=== PATIENT | male | born 1955 ===

== ENCOUNTER 2024-12-26 05:20 | Observation (INO) ==
--- NOTE | 2024-11-26 09:44 | PAT Medication Instructions ---
Medication Instructions Date of Service November 26, 2024 Home Medications metoprolol succinate 100 mg tablet,extended release 24 hr (Toprol XL) 100 mg PO QAM apixaban 5 mg tablet (Eliquis) 5 mg PO BID atorvastatin 40 mg tablet 40 mg PO QAM flecainide 100 mg tablet 100 mg PO Q12H lisinopril 5 mg tablet (Zestril) 5 mg PO QAM spironolactone 25 mg tablet (Aldactone) 25 mg PO QAM ASK your prescriber and surgeon apixaban 5 mg tablet (Eliquis) 5 mg PO BID (From anesthesia perspective, Apixaban/Eliquis is requested to be stopped 72 hours/3 days before surgery. Please check if okay with doctor that prescribes this to you) DO NOT take the morning of surgery lisinopril 5 mg tablet (Zestril) 5 mg PO QAM spironolactone 25 mg tablet (Aldactone) 25 mg PO QAM Take morning of surgery With a small sip of water, OTHERWISE NOTHING TO EAT OR DRINK AFTER MIDNIGHT: metoprolol succinate 100 mg tablet,extended release 24 hr (Toprol XL) 100 mg PO QAM atorvastatin 40 mg tablet 40 mg PO QAM flecainide 100 mg tablet 100 mg PO Q12H Take evening before surgery flecainide 100 mg tablet 100 mg PO Q12H Other Notes If you have any questions please call us at [phone] or [phone] or [phone] or [phone]
--- NOTE | 2024-12-02 10:31 | Anesthesiology Consultation ---
Date of Service December 02, 2024 Assessment & Plan (1) Encounter for pre-operative examination: - Infectious disease screening: Per assessment on 12/02/24- No known recent infectious disease contacts or current infectious disease symptoms. - Eliquis/Apixaban instructions: patient made aware that for neuraxial anesthesia, Eliquis/Apixaban needs to be held 72 hours prior to surgery. Patient voiced understanding/will check if okay with prescriber. - Outpatient joint assessment: Pt currently scheduled for inpatient pathway. If surgeon requests review for outpatient joint pathway, patient is not a recommended candidate for outpatient joint program from anesthesia standpoint based on available information. - Cardiology visit (12/05/24): "Getting R MAITE done later this month.. Ejection fraction has recovered to normal.. Profile: Compensated.. 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 Continue flecainide.. Metoprolol.. Apixaban.. Can hold Eliquis 2-3 days before surgery" 6-month follow-up recommended. Patient made aware anesthesia request/recommendation to hold Eliquis 3 days prior to surgery* - Pulmonary nodule on preop CXR > Note written to PCP regarding preop CXR. PCP note/visit (12/15/24): "..had 'small pulm nodule' seen in left mid lung on pre op CXR at [facility].. having R total hip.. Negative for cough and shortness of breath.. Cont same meds.. will arrange for CT of chest.. cleared for his upcoming surgery as long as cardio has no objections.." PCP communication note with cardio 12/15/24 confirmed no objections with upcoming surgery from cardio perspective. > Chest CT does not need to be done prior to upcoming surgery from PCP perspective; scheduled 01/2025 per PCP office. Nothing further needed in regards to this preoperatively. - Spoke with Pat with cardio/pacer clinic on 12/16/24. She confirms that ICD check was done 11/2024 and states she will fax report. Awaiting 11/2024 ICD check report (Dr. Blanc). Patient is otherwise acceptable risk for surgery. Chart Review Chart Review: Patient seen in Pre Admission Testing Teaching & Discussion Pre-Anesthesia Teaching/Discussion Notes: Instructed NPO after midnight before surgery,except medications with 15 cc of water. Medication instructions provided according to the PAT guidelines. History Surgery Operation Date: 12/26/24 07:00 Proposed Procedures p Right Anterior Total Hip Arthroplasty - Jan Levine DO Height/Weight Height: 6 ft 1 in Weight: 114.3 kg Allergies Allergy/AdvReac Type Severity Reaction Status Date / Time No Known Drug Allergies Allergy Verified 11/26/24 07:32 Medications Home Medications Medication Instructions Recorded Confirmed Last Taken metoprolol succinate 100 mg 100 mg PO QAM 01/23/24 11/26/24 Unknown tablet,extended release 24 hr (Toprol XL) apixaban 5 mg tablet (Eliquis) 5 mg PO BID 11/26/24 11/26/24 Unknown atorvastatin 40 mg tablet 40 mg PO QAM 11/26/24 11/26/24 Unknown flecainide 100 mg tablet 100 mg PO Q12H 11/26/24 11/26/24 Unknown lisinopril 5 mg tablet (Zestril) 5 mg PO QAM 11/26/24 11/26/24 Unknown spironolactone 25 mg tablet 25 mg PO QAM 11/26/24 11/26/24 Unknown (Aldactone) Past Medical History Medical History A-fib Taking Eliquis CKD (chronic kidney disease) Stage II Per cardio records History of cardiomyopathy Hx tachycardia-induced cardiomyopathy per cardio records History of heart failure Hx heart failure with recovered EF per cardio records Hx of cardiac arrest 2019, hospitalized [facility] > pacemaker implanted Hyperlipidemia Hypertension ICD (implantable cardioverter-defibrillator) in place [employer], Dual chamber ICD Follows with Dr. Blanc Osteoarthritis Sleep apnea CPAP (compliant) Exercise / Class Metabolic Activity II 4-5 Yardwork/Stairs/Walk up hill (one FS: No CP, no SOB) Past Family History Family History Other No family history of adverse response to anesthesia Past Surgical History Surgical History H/O hernia repair History of cardiac cath "04/25/2018: Angiographically normal coronaries" per cardio records History of cholecystectomy History of tooth extraction S/P LASIK surgery of both eyes Status post internal cardiac defibrillator procedure Past Anesthesia History No Hx of Anesthesia Complications and No Family Hx of Anesthesia Complications History of PONV No Hx of PONV and No Hx of Motion Sickness Social History Smoking Status: Never smoker Do You Dip or Chew Tobacco: No Hx Alcohol Use: Yes Alcohol type: beer alcohol intake frequency: a few times a month substance use type: does not use Review of Systems Patient denies chest pain, shortness of breath, dyspnea on exertion, fever, chills, cough, wheezing, palpitations. Physical Exam Vital Signs BP 102/62 P 58 TEMP 98.3 SP02 96%RA RESP 16 Physical Full cervical extension range of motion. Full TMJ range of motion. TMD 3 finger breaths Mallampati Score III Dentition: missing side, possible cap Lungs: clear throughout to auscultation Cardiac: regular rate and rhythm, no murmurs noted Spine: normal Carotid arteries: negative bruit Extremities: no LE edema Lab Results Anesthesia Preop Results Results Anesthesia Widget: WBC 11.24 K/ul (4.8-10.8) H 12/02/24 Hgb 13.2 g/dl (14.0-18.0) L 12/02/24 Hct 38.0 % (42.0-52.0) L 12/02/24 Plt 299 K/uL (130-400) 12/02/24 Na 135 mmol/L (136-145) L 12/02/24 K 4.4 mmol/L (3.5-5.1) 12/02/24 Cl 103 mmol/L (98-107) 12/02/24 CO2 24 mmol/L (21-32) 12/02/24 BUN 32 mg/dl (6-23) H 12/02/24 Creat 1.14 mg/dl (0.6-1.4) 12/02/24 Glucose Level 89 mg/dl (70-99(Fasting)) 12/02/24 PT 11.4 Seconds (9.0-12.0) 12/02/24 PTT 29 Seconds (21-31) 12/02/24 INR 1.1 (0.9-1.1) 12/02/24 Blood Type O Positive 12/02/24 Antibody Screen NEGATIVE 12/02/24 Testing Laboratory Results Surgeon's office made aware of elevated WBC* Electrocardiogram Date: 12/02/24 Atrial-paced rhythm with prolonged AV conduction at 51bpm. LAD. Chest X-Ray Date: 12/02/24 FINDINGS: Left cardiac pacemaker is present. Heart size and pulmonary vasculature are normal. No consolidation or pleural effusion. There is a small nodule at the left midlung. IMPRESSION: 1. No acute findings. 2. Small left pulmonary nodule. If there is not prior imaging to demonstrate two-year stability of this finding, chest CT would be suggested. Echocardiogram Date: 06/03/24 LVEF 54%. Thickened, calcified and nonrestricted aortic valve. STEVE 1.6 cm, AV mean gradient 7 mmHg. Mild MR/GA. Mild to moderate TR. Mild LAE. Moderate SONYA. Mild pulmonary hypertension; estimated PASP 46 mmHg. Normal diastolic function. No significant change compared to 03/31/2022 per report. Cardiac Catheterization Date: 04/25/18 "Angiographically normal coronaries" per cardio records; attempts to obtain official report unsuccessful. Other Testing Pacer check Date: 11/28/23 Battery longevity 9 years. AP 16%. RVP < 1%. "No events.. No change"
[2024-12-26] MEDS: FAMOTIDINE 20 MG TAB PO SCH (05:55)
[2024-12-26] MEDS: GABAPENTIN 300 MG CAP PO SCH (05:55)
[2024-12-26] MEDS: ACETAMINOPHEN 500 MG TAB PO SCH ×2 (05:55→15:10)
[2024-12-26] MEDS: dexAMETHasone**PF** 10 MG/ML VIAL IV SCH (05:55)
[2024-12-26] MEDS: LR 500ML BOLUS, THEN 15ML/HR IV SCH (05:56)
[2024-12-26] MEDS: LR 60ML/HR IV SCH (05:56)
[2024-12-26] MEDS ORDERED: BUPIVACAINE 0.5 % 5 MG/1 ML PF 10ML VIAL ONE (06:18)
--- NOTE | 2024-12-26 06:26 | History & Physical Bridge Note ---
Date of Service December 26, 2024 History & Physical Bridge Note I have examined the patient, reviewed the History & Physical and in the interval since the performance of the History & Physical I have noted the following changes of clinical significance: no changes noted
[2024-12-26] MEDS ORDERED: PROPOFOL IV EMULSION 10 MG/ML 20 ML VIAL IV ONE ×3 (06:40→08:05)
[2024-12-26] MEDS ORDERED: ONDANSETRON INJ 2 MG/ML 2 ML VIAL ONE (06:41)
[2024-12-26] MEDS ORDERED: MIDAZOLAM HCL 1 MG/ML 2ML VIAL ONE (06:48)
[2024-12-26] MEDS ORDERED: ATROPINE SULFATE 0.1 MG/ML 10ML SYR IV PRN (06:49)
[2024-12-26] MEDS ORDERED: ONDANSETRON INJ 2 MG/ML 2 ML VIAL IV PRN ×2 (06:49→09:29)
[2024-12-26] MEDS ORDERED: PROMETHAZINE HCL 6.25 MG in SODIUM CHLORIDE 0.9% 50 ML IV PRN (06:49)
[2024-12-26] MEDS: TRANEXAMIC ACID 1,000 MG **IV Pre-op IV SCH (06:50)
[2024-12-26] MEDS ORDERED: ePHEDrine sulfate 50 MG/5 ML SYR ONE (07:18)
[2024-12-26] MEDS: ORTHO JOINT ANESTHETIC ONE (07:32)
[2024-12-26] MEDS: ROPIV 0.5% 246mg, Ketorolac 30mg, EPINEPHrine 0.5mg in NSS INFIL SCH (07:32)
--- NOTE | 2024-12-26 08:03 | Operative Report ---
PG Post Operative Report Pre & Post Diagnosis Operation Date: 12/26/24 07:00 Pre-Op Diagnosis: Right Hip Arthritis Post-Op Diagnosis: Right Hip Arthritis I identified the patient and participated in the time-out.: Yes Procedure Operation Date: 12/26/24 07:00 Actual Procedures p Right Anterior Total Hip Arthroplasty(Right) - Jan Levine DO Surgeon Jan Levine DO Bag Worker Masood Romano PA-C Estimated Blood Loss 250 Findings Consistent with Post-Op Diagnosis Specimens Right femoral head Description of Procedure Implants used I used a [employer] total hip arthroplasty system with a size 6 high offset Z1 stem, a 54 mm G7 cup, an E1 polyethylene liner, a 40 mm ceramic head with a +7 neck. Jose Antonio arrived at the hospital for the above procedure. He was seen in the preoperative holding area and the operative extremity was identified and signed. He was given a spinal anesthetic, a preoperative antibiotic, and TXA. He was then taken back to the operating room and laid on the table in the supine position. He was given basic sedation. The operative leg was secured to a Puristst leg positioner. The hip was then prepped and draped in sterile fashion. A timeout was done and the patient and the operative extremity was properly identified. An anterior approach was used. Dissection was taken down through the fascia and the tensor muscle belly was retracted laterally and the rectus was retracted medially. The circumflex vessels were identified and ligated. The capsule was then incised and tagged for later repair. The femoral neck was then cut and the femoral head was removed. The acetabulum was exposed. Time was spent doing a complete circumferential labral release. Sequential reaming of the acetabulum up to a size 53 reamer was done. Final reamings were done under fluoroscopy to ensure appropriate version. A Biomet 54 mm G7 cup was then impacted into place. The E1 polyethylene liner was then snapped into place. Surrounding soft tissues were then injected with 100 cc of an orthopedic pain control cocktail. The proximal femur was then exposed. Sequential broaching up to a size 6 broach was done. Off that broach a size 40 head with a +7 neck was trialed. The hip was reduced and fluoroscopic images showed anatomic alignment of the implants in acceptable length. The broach was removed. The final size 6 high offset Z1 stem was then impacted into place. A ceramic 40 mm head with a +7 neck was then impacted onto the stem and the hip was reduced. Final fluoroscopic images showed anatomic alignment of the hip. The capsule was then closed with #1 Vicryl suture. A dilute betadyne lavage was then done for 3 minutes. The joint was then irrigated with normal saline solution. The fascia was closed with #1 PDS suture. Skin was closed with 2-0 Vicryl, [place] Zipline, and a Silverlon dressing. He was then transferred to a hospital bed and taken to the post anesthesia care unit in stable condition. He tolerated the procedure well. Masood Romano PA-C, was present for the entire procedure. He was critical for patient positioning, prepping, draping, retraction exposure, wound closure and application of sterile dressing. I attest to the content of the Intraoperative Record and any orders documented therein. Any exceptions are noted below.
--- NOTE | 2024-12-26 08:52 | XRay Report ---
XR hip 1V RT w pelvis CLINICAL HISTORY: IN PACU - Post Surgical COMPARISON: None FINDINGS: Right hip prosthesis shows no hardware complication. There is expected soft tissue gas. IMPRESSION: Unremarkable postoperative exam. ACT 112: Negative or not required by law. Electronically signed by: Paul Delgado M.D. 12/26/2024 8:50 AM
--- NOTE | 2024-12-26 09:07 | Anesthesiology Progress Note ---
Date of Service December 26, 2024 Anesthesia Post Procedure Vital Signs Vital Signs: Temp Pulse Pulse Resp BP BP Pulse Ox 12/26/24 09:00 36.5 C 51 L 15 125/58 L 98 12/26/24 08:50 51 L 15 117/57 L 96 12/26/24 08:45 51 L 17 121/61 97 12/26/24 08:35 53 L 16 122/62 97 12/26/24 08:29 36.1 C L 52 L 15 107/51 L 96 12/26/24 05:35 36.6 C 50 L 20 137/69 99 O2 Del Method 12/26/24 09:00 Room Air 12/26/24 08:50 Room Air 12/26/24 08:45 Room Air 12/26/24 08:35 Room Air 12/26/24 08:29 Room Air 12/26/24 05:35 Room Air Transfer of Care Handoff Completed per policy Notes Mental Status: alert / awake / arousable Patient Amnestic to Procedure: Yes Nausea / Vomiting: adequately controlled Pain: adequately controlled Airway Patency, RR, SpO2: stable & adequate BP & HR: stable & adequate Hydration State: stable & adequate Neuraxial Anesthesia: was administered and sensory block is resolving Anesthetic Complications: no major complications apparent
--- NOTE | 2024-12-26 09:28 | Fluoroscopy Report ---
FL hip RT 1V CLINICAL HISTORY: RT ANTERIOR TOTAL HIP COMPARISON STUDY: None FLUOROSCOPY TIME: 17 seconds FLUOROSCOPY IMAGES: 1 EXPOSURE DOSE: 3.4 mGy FINDINGS: Fluoroscopy was provided for right hip prosthesis. IMPRESSION: Intraoperative fluoroscopy. ACT 112: Negative or not required by law. Electronically signed by: Paul Delgado M.D. 12/26/2024 9:27 AM
[2024-12-26] MEDS ORDERED: NALOXONE HCL 0.4 MG/1 ML VIAL/CARP IV PRN (09:29)
[2024-12-26] MEDS ORDERED: TAMSULOSIN HCL 0.4 MG CAP PO PRN (09:29)
[2024-12-26] MEDS ORDERED: MAGNESIUM HYDROXIDE SUSP 30 ML UDC PO PRN (09:29)
[2024-12-26] MEDS ORDERED: diphenhydrAMINE Capsule 25 MG CAP PO PRN (09:29)
[2024-12-26] MEDS ORDERED: METOCLOPRAMIDE HCL INJ 5 MG/ML 2 ML VIAL IV PRN (09:29)
[2024-12-26] MEDS ORDERED: HYDROmorphone INJ 0.5 MG/0.5 ML SYR IV PRN (09:29)
[2024-12-26] MEDS: SODIUM CHLORIDE 0.9% 1,000 ML IV SCH (09:30)
[2024-12-26 10:38] VITALS: RESP 18
[2024-12-26] MEDS: ATORVASTATIN 40 MG TAB PO SCH (10:53)
[2024-12-26] MEDS: METOPROLOL SUCC 50MG EXT REL TAB PO SCH (10:53)
[2024-12-26] MEDS: FLECAINIDE ACETATE 100 MG TABLET PO SCH (10:54)
[2024-12-26] MEDS: SPIRONOLACTONE 25 MG TAB PO SCH (10:55)
[2024-12-26] MEDS: MULTIVITAMIN TAB PO SCH (10:56)
[2024-12-26] MEDS: KETOROLAC TROMETHAMINE 15 MG/ML VIAL IV SCH (10:59)
[2024-12-26] MEDS: DOCUSATE SODIUM 100 MG CAP PO SCH (10:59)
[2024-12-26] MEDS: SENNA 8.6 MG TAB PO SCH (20:46)
--- NOTE | 2024-12-27 07:36 | Orthopedic Progress Note ---
Date of Service December 27, 2024 Assessment & Plan (1) Osteoarthritis of right hip: Overall he is doing very well. He is not having much pain in the right hip. He will be seen by physical therapy today for ambulation and range of motion exercises. He is on Eliquis for DVT prophylaxis. He can be discharged to home later today. He will follow-up with orthopedics in 2 weeks. Nicolette Brady was seen and examined at bedside this morning. Overall is doing very well. He is not having much pain in the right hip. He has been up and ambulating to the bathroom. He has no complaints.. Review of Systems All systems reviewed & are unremarkable except as noted in HPI & below. Physical Exam On physical exam of the right hip, the dressing is clean and dry. His leg is out in full extension. He has active dorsiflexion and plantarflexion of his right ankle.. Results & Data Results & Data Laboratory Results . Diagnostic Findings Postoperative x-rays of the right hip show the prosthesis to be in anatomic alignment without any evidence of fracture, dislocation, or loosening.. PG Care Time/CCT Total # of Minutes Spent Total Time Spent with Patient: Total time spent is greater than 50% in coordination of care (as documented) at patient's floor/unit and/or counseling patient: Coding Level of Care Code 01133 Post Operative Follow-Up Diagnoses Osteoarthritis of right hip M16.11
[2024-12-27] MEDS: APIXABAN 5 MG TABLET PO SCH (07:54)
[2024-12-27 08:24] VITALS: BP 142/72; PULSE 55; TEMP 98.1; O2SAT 98
== END 2024-12-27 11:09 | disposition home or self-care (01) ==
LOC: 3E 05:20 → ASU 05:20